=== PATIENT | male | born 1955 ===

== ENCOUNTER 2017-04-01 20:46 | Observation (INO) | payer OTHER ==
[2017-04-01 21:16] VITALS: BMI 29.2
--- NOTE | 2017-04-01 21:42 | ED PDOC ---
Arrival/HPI - General Chief Complaint: Chest Pain Time Seen by Provider: 04/01/17 20:48 Historian: Patient - History of Present Illness Narrative History of Present Illness (Text): 04/01/17 21:35 Yovani Shi is a 61 year old male, whose past medical history includes hypertension, who presents to the Emergency department complaining of chest pain. Patient states he began experiencing intermittent chest tightness after eating dinner tonight. Patient states he is able to tolerate fluids without difficulty. Patient states chest tightness has improved, but is still present. Patient reports a family history of cardiac disease. Patient denies any fever, chills, shortness of breath, nausea, vomiting, diarrhea, urinary symptoms, back pain, neck pain, headache, dizziness, or any other complaints. Symptom Onset: Gradual Symptom Course: Unchanged Quality: Tightness Activities at Onset: Light, Eating Context: Home Past Medical History - Provider Review Nursing Documentation Reviewed: Yes - Infectious Disease Hx of Infectious Diseases: None - Cardiac Hx Hypertension: Yes - Psychiatric Hx Substance Use: No - Surgical History Hx Cholecystectomy: Yes Family/Social History - Physician Review Nursing Documentation Reviewed: Yes Family/Social History: CAD/GA Smoking Status: Never Smoked Hx Alcohol Use: No Hx Substance Use: No Allergies/Home Meds Allergies/Adverse Reactions: Allergies anesthesia Allergy (Uncoded 04/01/17 21:17) FATIGUE tremors Review of Systems - Physician Review All systems were reviewed & negative as marked: Yes - Review of Systems Constitutional: Normal. absent: Fevers Eyes: Normal ENT: Normal Respiratory: Normal. absent: SOB, Cough Cardiovascular: Chest Pain Gastrointestinal: Normal. absent: Abdominal Pain, Diarrhea, Nausea Genitourinary Male: Normal. absent: Dysuria, Frequency, Hematuria, Urinary Output Changes Musculoskeletal: Normal. absent: Back Pain, Neck Pain Skin: Normal. absent: Rash Neurological: Normal. absent: Headache, Dizziness Endocrine: Normal Hemo/Lymphatic: Normal Psychiatric: Normal Physical Exam Vital Signs Reviewed: Yes Vital Signs Temp Pulse Resp BP Pulse Ox 04/01/17 23:27 97.6 F 60 17 157/90 H 98 Temperature: Afebrile Blood Pressure: Normal Pulse: Regular Respiratory Rate: Normal Appearance: Positive for: Well-Appearing, Non-Toxic, Comfortable Pain Distress: None Mental Status: Positive for: Alert and Oriented X 3 - Systems Exam Head: Present: Atraumatic, Normocephalic Pupils: Present: PERRL Extroacular Muscles: Present: EOMI Conjunctiva: Present: Normal Mouth: Present: Moist Mucous Membranes Neck: Present: Normal Range of Motion Respiratory/Chest: Present: Clear to Auscultation, Good Air Exchange. No: Respiratory Distress, Accessory Muscle Use Cardiovascular: Present: Regular Rate and Rhythm, Normal S1, S2. No: Murmurs Abdomen: Present: Normal Bowel Sounds. No: Tenderness, Distention, Peritoneal Signs Back: Present: Normal Inspection Upper Extremity: Present: Normal Inspection. No: Cyanosis, Edema Lower Extremity: Present: Normal Inspection. No: Edema Neurological: Present: GCS=15, CN II-XII Intact, Speech Normal Skin: Present: Warm, Dry, Normal Color. No: Rashes Psychiatric: Present: Alert, Oriented x 3, Normal Insight, Normal Concentration Medical Decision Making ED Course and Treatment: 04/01/17 21:35 Impression: 61 year old male complaining of intermittent chest tightness today. Plan: -- EKG -- Chest X-ray -- Labs, cardiac enzymes -- Reassess and disposition Progress Notes: Reviewed EKG, NSR at [address]-segment elevations or depressions, no T-wave inversions, normal intervals. 04/01/17 22:27 Chest X-ray reviewed, shows no acute processes. 04/01/17 23:[address] Robertson, who is aware and agrees with plan. Accepts pt in to hospitalist service. Pt will go to Telemetry observation for chest pain. resident programs assistant notified. - Lab Interpretations Lab Results: 04/01/17 21:57 04/01/17 21:57 Lab Results 04/01/17 21:57: WBC 5.2, RBC 5.09, Hgb 14.2, Hct 41.3 L, MCV 81.1, MCH 27.9, MCHC 34.4, RDW 13.4, Plt Count 159, MPV 10.1 04/01/17 21:57: Sodium 142, Potassium 3.6, Chloride 102, Carbon Dioxide 31, Anion Gap 13, BUN 9, Creatinine 0.7 L, Est GFR ( Amer) > 60, Est GFR (Non -Af Amer) > 60, Random Glucose 151 H, Calcium 9.6, Total Bilirubin 0.5, AST 36, ALT 42, Alkaline Phosphatase 65, Lactate Dehydrogenase 495, Total Creatine Kinase 119, Troponin I < 0.01, Total Protein 7.3, Albumin 3.9, Globulin 3.4, Albumin/Globulin Ratio 1.2 04/01/17 21:57: PT 12.2, INR 1.07, APTT 37.4 H I have reviewed the lab results: Yes - RAD Interpretation Radiology Orders: 04/01/17 21:41 CHEST PORTABLE [RAD] Stat Space Control Agent: ED Physician - EKG Interpretation Interpreted by ED Physician: Yes Type: 12 lead EKG - Medication Orders Current Medication Orders: Discontinued Medications Aspirin (Aspirin) 325 mg PO ONCE STA Stop: 04/01/17 23:05 Last Admin: 04/01/17 23:27 Dose: 325 mg - Scribe Statement The provider has reviewed the documentation as recorded by the Thomasibkathryn Gamble All medical record entries made by the Thomasibkathryn were at my direction and personally dictated by me. I have reviewed the chart and agree that the record accurately reflects my personal performance of the history, physical exam, medical decision making, and the department course for this patient. I have also personally directed, reviewed, and agree with the discharge instructions and disposition. Disposition/Present on Arrival - Present on Arrival Any Indicators Present on Arrival: No History of DVT/PE: No History of Uncontrolled Diabetes: No Urinary Catheter: No History of Decub. Ulcer: No History Surgical Site Infection Following: None - Disposition Have Diagnosis and Disposition been Completed?: Yes Diagnosis: Chest pain Disposition: HOSPITALIZED Disposition Time: 23:04 Patient Plan: Observation Patient Problems: Current Active Problems Problem Status Onset Chest pain Acute Condition: STABLE
[2017-04-01 22:14] LABS: HEMOGLOBIN 14.2 g/dL (14.0-18.0); MEAN CELL VOLUME 81.1 fl (80.0-105.0); MEAN CORPUSCULAR HEMOGLOBIN 27.9 pg (25.0-35.0); MEAN CORPUSCULAR HGB CONC 34.4 g/dl (31.0-37.0); MEAN PLATELET VOLUME 10.1 fl (7.0-11.0); RBC 5.09 10^6/uL (3.5-6.1); RED CELL DISTRIBUTION WIDTH 13.4 % (11.5-14.5); WHITE BLOOD COUNT 5.2 10^3/ul (4.5-11.0)
[2017-04-01 22:22] LABS: INR 1.07 (0.93-1.08); PROTHROMBIN TIME 12.2 SECONDS (9.4-12.5)
[2017-04-01 22:23] LABS: PARTIAL THROMBOPLASTIN TIME 37.4 Seconds (25.1-36.5)
[2017-04-01 22:47] LABS: ALB/GLOB RATIO 1.2 (1.1-1.8); ALBUMIN 3.9 g/dL (3.0-4.8); ALT/SGPT 42 U/L (7-56); AST/SGOT 36 U/L (17-59); BLOOD UREA NITROGEN 9 mg/dL (7-21); CALCIUM 9.6 mg/dL (8.4-10.5); GFR AFRICAN-AMERICAN > 60; GFR NON-AFRICAN AMERICAN > 60
[2017-04-01 22:57] LABS: TROPONIN I < 0.01 ng/mL
--- NOTE | 2017-04-02 02:30 | CP.PCM.HP ---
<Indra Malagon - Last Filed: 04/02/17 03:22> History of Present Illness - History of Present Illness History of Present Illness: Patient is a 62 year old male with a PMHx of HTN who presents complaining of non -radiating, reproducible, 7/10, squeezing chest pain that began Sunday night. Patient states the pain is worse with food. Nothing makes the pain better. He did not attempt any modalities to relieve the pain. He denies any fever, chills , SOB, palpitations, nausea, vomiting, changes in bowel habits, or urinary symptoms. He does admit to some epigastric pain. Pain had resolved in the ED. ROS: As stated above PMHx: HTN PSHx: Cholecystectomy (2015), Back surgery. Allergies: Denies SocialHx: Denies tobacco, alcohol, or illicit drug use. FamHx: Heart Disease (Mother) Meds: unspecified anti-hypertensive PMD: Dr. Cardona Present on Admission - Present on Admission Any Indicators Present on Admission: No Review of Systems - Review of Systems All systems: reviewed and no additional remarkable complaints except (As per HPI ) Past Patient History - Infectious Disease Hx of Infectious Diseases: None - Past Social History Smoking Status: Never Smoked - CARDIAC Hx Cardiac Disorders: Yes Hx Hypertension: Yes - MUSCULOSKELETAL/RHEUMATOLOGICAL Hx Falls: No - PSYCHIATRIC Hx Substance Use: No - SURGICAL HISTORY Hx Surgeries: Yes Hx Cholecystectomy: Yes Other/Comment: spinal sx Meds Allergies/Adverse Reactions: Allergies Allergy/AdvReac Type Severity Reaction Status Date / Time anesthesia Allergy FATIGUE Uncoded 04/01/17 21:17 Physical Exam - Constitutional Appears: Well, Non-toxic, No Acute Distress - Head Exam Head Exam: ATRAUMATIC, NORMAL INSPECTION, NORMOCEPHALIC - Eye Exam Eye Exam: EOMI, Normal appearance, PERRL - ENT Exam ENT Exam: Mucous Membranes Moist - Neck Exam Neck exam: Negative for: Lymphadenopathy, Thyromegaly - Respiratory Exam Respiratory Exam: Chest Wall Tenderness, Clear to Auscultation Bilateral. absent: Accessory Muscle Use, Rales, Rhonchi, Wheezes, Stridor - Cardiovascular Exam Cardiovascular Exam: Bradycardia, REGULAR RHYTHM, +S1, +S2. absent: Diastolic murmur, JVD, Systolic Murmur - GI/Abdominal Exam GI & Abdominal Exam: Normal Bowel Sounds, Soft, Tenderness (Epigastric ). absent: Bruit, Distended, Firm, Guarding, Mass, Organomegaly, Rigid - Neurological Exam Neurological exam: Alert, Oriented x3 - Psychiatric Exam Psychiatric exam: Normal Affect, Normal Mood - Skin Skin Exam: Dry, Intact, Normal Color, Warm Results - Vital Signs Recent Vital Signs: Last Vital Signs Temp 97.9 F 04/02/17 01:28 Pulse 64 04/02/17 01:47 Resp 18 04/02/17 01:28 BP 145/87 04/02/17 01:28 Pulse Ox 98 04/01/17 23:27 - Labs Result Diagrams: 04/01/17 21:57 04/01/17 21:57 Assessment & Plan - Assessment and Plan (Free Text) Assessment: 62 year old Barb[place] Speaking male with PMHx of HTN admitted for evaluation and treatment of chest pain Plan: Chest Pain, R/O ACS DDx: GERD, Costochondritis, ACS (less likely) 1st Troponin: NEGATIVE 1st EKG: NSR, no acute ST or T wave changes ASA 325 Given in ED Serial EKG's Serial Troponins Cardiology Consult (Dr. Delaney) Hx of HTN Patient can't remember name of Anti-hypertensive. Verify with pharmacy in the AM. Hydralazine 10 IV Q6H PRN Proph Protonix SCD's Patient seen and discussed with Attending (Dr. Robertson) Indra Malagon, PGY1 <Cindy Robertson - Last Filed: 04/02/17 03:50> Results - Vital Signs Recent Vital Signs: Last Vital Signs Temp 98.2 F 04/02/17 02:41 Pulse 63 04/02/17 02:41 Resp 17 04/02/17 02:41 BP 153/93 H 04/02/17 02:41 Pulse Ox 98 04/02/17 02:41 - Labs Result Diagrams: 04/01/17 21:57 04/01/17 21:57 Attending/Attestation - Attestation I have personally seen and examined this patient.: Yes I have fully participated in the care of the patient.: Yes I have reviewed all pertinent clinical information: Yes Notes (Text): 04/02/17 03:47 Patient was seen when he was in bed # 19 in the ER . Agree with history, physical examination, assessment and plan. My impressions as follows: Epigastric pain. Chest pain. Musculo-skeletal chest pain. Overweight. Hyperglycemia. History of migraine. Hypertension. History of chest pain. History of hepatitis. History of gastritis. History of umbilical herniorrhaphy. History of back surgery. Former smoker.
[2017-04-02 04:19] LABS: BASO # 0.03 K/mm3 (0.0-2.0); BASO % 0.5 % (0.0-3.0); EOS # 0.2 (0.0-0.7); EOS % 3.7 % (1.5-5.0); GRAN # 3.28 (1.4-6.5); GRAN % 55.5 % (50.0-68.0); HEMOGLOBIN 14.1 g/dL (14.0-18.0); LYMPH # 1.9 (1.2-3.4); LYMPH % 31.8 % (22.0-35.0); MEAN CORPUSCULAR HEMOGLOBIN 27.9 pg (25.0-35.0); MEAN CORPUSCULAR HGB CONC 34.4 g/dl (31.0-37.0); MEAN PLATELET VOLUME 10.1 fl (7.0-11.0); MONO # 0.5 (0.1-0.6); MONO % 8.5 % (1.0-6.0); RBC 5.06 10^6/uL (3.5-6.1); RED CELL DISTRIBUTION WIDTH 13.6 % (11.5-14.5); WHITE BLOOD COUNT 5.9 10^3/ul (4.5-11.0)
[2017-04-02 04:30] LABS: ALB/GLOB RATIO 1.1 (1.1-1.8); ALBUMIN 3.8 g/dL (3.0-4.8); ALT/SGPT 43 U/L (7-56); AST/SGOT 30 U/L (17-59); BLOOD UREA NITROGEN 9 mg/dL (7-21); CALCIUM 8.9 mg/dL (8.4-10.5); GFR AFRICAN-AMERICAN > 60; GFR NON-AFRICAN AMERICAN > 60
[2017-04-02 04:42] LABS: TROPONIN I < 0.01 ng/mL
[2017-04-02] MEDS ORDERED: Potassium Chloride 20 mEq ER Tab PO STA (04:51)
[2017-04-02] MEDS: Pantoprazole 40 mg EC Tab PO SCH ×2 (05:07→17:25)
[2017-04-02 05:46] VITALS: O2SAT 99
--- NOTE | 2017-04-02 09:19 | RAD ---
HISTORY: chest pain COMPARISON: No prior. FINDINGS: LUNGS: No active pulmonary disease. PLEURA: No significant pleural effusion identified, no pneumothorax apparent. CARDIOVASCULAR: Normal. OSSEOUS STRUCTURES: No significant abnormalities. VISUALIZED UPPER ABDOMEN: Normal. OTHER FINDINGS: None. IMPRESSION: No active disease.
--- NOTE | 2017-04-02 10:09 | CARD ---
APPROVED REPORT EKG Measurement Heart [id number] <Conclusion> Sinus bradycardia Otherwise normal ECG
--- NOTE | 2017-04-02 10:49 | CP.PCM.DIS ---
<Collin Segal - Last Filed: 04/03/17 02:31> Provider - Provider Date of Admission: 04/01/17 23:07 Attending physician: Vivek Simental MD Primary care physician: NO PRIMARY CARE PROVIDER Consults: Cardiology: Dr. Chaudhary Time Spent in preparation of Discharge (in minutes): 45 Diagnosis - Discharge Diagnosis (1) GERD (gastroesophageal reflux disease) Status: Acute Priority: Medium (2) Chest pain Status: Chronic Priority: Medium Hospital Course - Lab Results Lab Results: Most Recent Lab Values WBC 5.9 10^3/ul (4.5-11.0) 04/02/17 04:08 RBC 5.06 10^6/uL (3.5-6.1) 04/02/17 04:08 Hgb 14.1 g/dL (14.0-18.0) 04/02/17 04:08 Hct 41.0 % (42.0-52.0) L 04/02/17 04:08 MCV 81.0 fl (80.0-105.0) 04/02/17 04:08 MCH 27.9 pg (25.0-35.0) 04/02/17 04:08 MCHC 34.4 g/dl (31.0-37.0) 04/02/17 04:08 RDW 13.6 % (11.5-14.5) 04/02/17 04:08 Plt Count 152 10^3/uL (120.0-450.0) 04/02/17 04:08 MPV 10.1 fl (7.0-11.0) 04/02/17 04:08 Gran % 55.5 % (50.0-68.0) 04/02/17 04:08 Lymph % (Auto) 31.8 % (22.0-35.0) 04/02/17 04:08 [place] % (Auto) 8.5 % (1.0-6.0) H 04/02/17 04:08 Eos % (Auto) 3.7 % (1.5-5.0) 04/02/17 04:08 Baso % (Auto) 0.5 % (0.0-3.0) 04/02/17 04:08 Gran # 3.28 (1.4-6.5) 04/02/17 04:08 Lymph # (Auto) 1.9 (1.2-3.4) 04/02/17 04:08 [place] # (Auto) 0.5 (0.1-0.6) 04/02/17 04:08 Eos # (Auto) 0.2 (0.0-0.7) 04/02/17 04:08 Baso # (Auto) 0.03 K/mm3 (0.0-2.0) 04/02/17 04:08 PT 12.2 SECONDS (9.4-12.5) 04/01/17 21:57 INR 1.07 (0.93-1.08) 04/01/17 21:57 APTT 37.4 Seconds (25.1-36.5) H 04/01/17 21:57 Sodium 143 mmol/L (132-148) 04/02/17 04:08 Potassium 3.5 mmol/L (3.6-5.0) L 04/02/17 04:08 Chloride 105 mmol/L (98-107) 04/02/17 04:08 Carbon Dioxide 27 mmol/L (21-33) 04/02/17 04:08 Anion Gap 14 (10-20) 04/02/17 04:08 BUN 9 mg/dL (7-21) 04/02/17 04:08 Creatinine 0.7 mg/dl (0.8-1.5) L 04/02/17 04:08 Est GFR ( Amer) > 60 04/02/17 04:08 Est GFR (Non-Af Amer) > 60 04/02/17 04:08 Random Glucose 142 mg/dL (70-110) H 04/02/17 04:08 Calcium 8.9 mg/dL (8.4-10.5) 04/02/17 04:08 Total Bilirubin 0.4 mg/dL (0.2-1.3) 04/02/17 04:08 AST 30 U/L (17-59) 04/02/17 04:08 ALT 43 U/L (7-56) 04/02/17 04:08 Alkaline Phosphatase 63 U/L (38-126) 04/02/17 04:08 Lactate Dehydrogenase 495 U/L (333-699) 04/01/17 21:57 Total Creatine Kinase 119 U/L (35-230) 04/01/17 21:57 Troponin I < 0.01 ng/mL 04/02/17 09:42 Total Protein 7.1 g/dL (5.8-8.3) 04/02/17 04:08 Albumin 3.8 g/dL (3.0-4.8) 04/02/17 04:08 Globulin 3.3 gm/dL 04/02/17 04:08 Albumin/Globulin Ratio 1.1 (1.1-1.8) 04/02/17 04:08 - Hospital Course Hospital Course: Patient is a 62 year old male with a past medical history of hypertension who presented complaining of non-radiating, reproducible, 7/10, squeezing chest pain that began Sunday night. Patient stated the pain is worse with food. Nothing makes the pain better. He did not attempt any modalities to relieve the pain. He denied any fever, chills, shortness of breath, palpitations, nausea, vomiting, changes in bowel habits, or urinary symptoms. He did also admit to some epigastric pain. Pain had resolved in the ED. Patient was seen the following morning. Cardiac enzymes were trended and negative, EKG revealed normal sinus rhythm. Pain patient chronically experiences is usually associated with food consumption and most likely non cardiac in origin. Patient was instructed to take protonix for four weeks and follow up with [facility] for further evaluation and possible referral to the GI clinic at [facility]. Patient was in agreement with plan and discharged. Case reviewed and discussed with Dr. Kamille Segal PGY1 Discharge Exam - Head Exam Head Exam: ATRAUMATIC, NORMAL INSPECTION, NORMOCEPHALIC - Eye Exam Eye Exam: EOMI, Normal appearance - ENT Exam ENT Exam: Mucous Membranes Moist - Neck Exam Neck exam: Normal Inspection - Respiratory Exam Respiratory Exam: Clear to PA & Lateral, NORMAL BREATHING PATTERN, UNREMARKABLE - Cardiovascular Exam Cardiovascular Exam: REGULAR RHYTHM, +S1, +S2 - GI/Abdominal Exam GI & Abdominal Exam: Normal Bowel Sounds, Unremarkable - Extremities Exam Extremities exam: normal inspection - Back Exam Back exam: NORMAL INSPECTION - Neurological Exam Neurological exam: Alert, CN II-XII Intact, Oriented x3 - Psychiatric Exam Psychiatric exam: Normal Affect, Normal Mood - Skin Skin Exam: Intact, Normal Color, Warm Discharge Plan - Discharge Medications Prescriptions: Pantoprazole Sodium [Protonix] 40 mg PO DAILY #30 ect - Follow Up Plan Condition: STABLE Disposition: HOME/ ROUTINE Instructions: Heart Healthy Diet, High Blood Pressure (DC), Chest Pain (DC) Additional Instructions: Discharge Instructions 1. Protonix trial for 4 weeks 2. follow up with [facility] [place] or [facility], then get referral to follow up with [facility] Department Chair at [facility]. Referrals: [facility] at [facility] [Outside] [facility] at [facility] [Outside] PCP,NO [Primary Care Provider] - Follow up with primary <Vivek Simental - Last Filed: 04/03/17 15:20> Provider - Provider Date of Admission: 04/01/17 23:07 Attending physician: Vivek Simental MD Primary care physician: NO PRIMARY CARE PROVIDER [place] [facility] Course - Lab Results Lab Results: Most Recent Lab Values WBC 5.9 10^3/ul (4.5-11.0) 04/02/17 04:08 RBC 5.06 10^6/uL (3.5-6.1) 04/02/17 04:08 Hgb 14.1 g/dL (14.0-18.0) 04/02/17 04:08 Hct 41.0 % (42.0-52.0) L 04/02/17 04:08 MCV 81.0 fl (80.0-105.0) 04/02/17 04:08 MCH 27.9 pg (25.0-35.0) 04/02/17 04:08 MCHC 34.4 g/dl (31.0-37.0) 04/02/17 04:08 RDW 13.6 % (11.5-14.5) 04/02/17 04:08 Plt Count 152 10^3/uL (120.0-450.0) 04/02/17 04:08 MPV 10.1 fl (7.0-11.0) 04/02/17 04:08 Gran % 55.5 % (50.0-68.0) 04/02/17 04:08 Lymph % (Auto) 31.8 % (22.0-35.0) 04/02/17 04:08 [place] % (Auto) 8.5 % (1.0-6.0) H 04/02/17 04:08 Eos % (Auto) 3.7 % (1.5-5.0) 04/02/17 04:08 Baso % (Auto) 0.5 % (0.0-3.0) 04/02/17 04:08 Gran # 3.28 (1.4-6.5) 04/02/17 04:08 Lymph # (Auto) 1.9 (1.2-3.4) 04/02/17 04:08 [place] # (Auto) 0.5 (0.1-0.6) 04/02/17 04:08 Eos # (Auto) 0.2 (0.0-0.7) 04/02/17 04:08 Baso # (Auto) 0.03 K/mm3 (0.0-2.0) 04/02/17 04:08 PT 12.2 SECONDS (9.4-12.5) 04/01/17 21:57 INR 1.07 (0.93-1.08) 04/01/17 21:57 APTT 37.4 Seconds (25.1-36.5) H 04/01/17 21:57 Sodium 143 mmol/L (132-148) 04/02/17 04:08 Potassium 3.5 mmol/L (3.6-5.0) L 04/02/17 04:08 Chloride 105 mmol/L (98-107) 04/02/17 04:08 Carbon Dioxide 27 mmol/L (21-33) 04/02/17 04:08 Anion Gap 14 (10-20) 04/02/17 04:08 BUN 9 mg/dL (7-21) 04/02/17 04:08 Creatinine 0.7 mg/dl (0.8-1.5) L 04/02/17 04:08 Est GFR ( Amer) > 60 04/02/17 04:08 Est GFR (Non-Af Amer) > 60 04/02/17 04:08 Random Glucose 142 mg/dL (70-110) H 04/02/17 04:08 Calcium 8.9 mg/dL (8.4-10.5) 04/02/17 04:08 Total Bilirubin 0.4 mg/dL (0.2-1.3) 04/02/17 04:08 AST 30 U/L (17-59) 04/02/17 04:08 ALT 43 U/L (7-56) 04/02/17 04:08 Alkaline Phosphatase 63 U/L (38-126) 04/02/17 04:08 Lactate Dehydrogenase 495 U/L (333-699) 04/01/17 21:57 Total Creatine Kinase 119 U/L (35-230) 04/01/17 21:57 Troponin I < 0.01 ng/mL 04/02/17 09:42 Total Protein 7.1 g/dL (5.8-8.3) 04/02/17 04:08 Albumin 3.8 g/dL (3.0-4.8) 04/02/17 04:08 Globulin 3.3 gm/dL 04/02/17 04:08 Albumin/Globulin Ratio 1.1 (1.1-1.8) 04/02/17 04:08 Attending/Attestation - Attestation I have personally seen and examined this patient.: Yes I have fully participated in the care of the patient.: Yes I have reviewed all pertinent clinical information, including history, physical exam and plan: Yes Notes (Text): 04/03/17 15:17 attending note; Patient seen and examined with resident. Patient is a 62-year-old male admitted with epigastric/chest pain. Patient was admitted to Telemetry and monitored closely. cardiac enzymes negative. cardiology evaluation appreciated. Patient will get outpatient stress test. Possible gastritis; started on Protonix. Follow up with GI as outpatient. Follow-up with PMD Dr. Cardona. Advised to complete [facility] Paperwork. [facility] information given.
[2017-04-02 13:55] VITALS: BP 141/90; PULSE 56; RESP 19; TEMP 98.3
--- NOTE | 2017-04-02 15:44 | CARD ---
APPROVED REPORT EKG Measurement Heart [id number] <Conclusion> Normal sinus rhythm NSSTW changes
--- NOTE | 2017-04-02 21:12 | CARD ---
APPROVED REPORT EKG Measurement Heart [id number] <Conclusion> Sinus bradycardia Otherwise normal ECG
--- NOTE | 2017-04-02 21:53 | CON ---
DATE: REASON FOR CONSULTATION: Chest pain, cardiac evaluation. BRIEF CLINICAL HISTORY: This is a 62-year-old male with past medical history of hypertension admitted because of complaint of chest pain. Initially it started on left side, then went to his right side and may get worse on taking a deep breath. Denies any chest pain, dyspnea on exertion or chest pain on walking. Sometimes the pain gets worse when the patient takes the food. Denies any chest pain on exertion or on walking. PAST MEDICAL HISTORY: Significant for hypertension. SOCIAL HISTORY: Denies smoking. Denies any history of alcohol abuse. Denies any history of substance abuse. PAST SURGICAL HISTORY: Significant for cholecystectomy in 2004. CURRENT MEDICATIONS: Does not take any medication. REVIEW OF SYSTEMS: As per HPI. PHYSICAL EXAMINATION: As follows; VITAL SIGNS: Temperature afebrile, heart rate 54, blood pressure 139/85. HEENT: PERRLA. Extraocular muscles intact. NECK: Supple. No carotid bruits or thyromegaly. CHEST: Clear to auscultation. HEART: S1 and S2, regular. ABDOMEN: Soft. EXTREMITIES: Clubbing and cyanosis negative. LABORATORY DATA: Blood workup as follows: WBC 5.9, hemoglobin 14.2, hematocrit 41.0, platelets count 152. Chemistries show sodium 142, potassium 3.5, chloride 105, carbon dioxide 27, anion gap of 14.9, creatinine 0.7. Troponin is 0.01. EKG shows normal sinus. No acute ST-T changes noted, within normal limits. IMPRESSION AND PLAN: Atypical chest pain. Two sets of troponins are negative. But because of risk factor, we will do a stress test as outpatient. We will do third sets of enzymes and if the third sets are negative, we will discontinue telemetry. We will also supplement potassium. We will follow with you. Thank you Dr. Cardona/Dr. Chance for providing us the opportunity in taking care of your patient, Yovani Shi. Mariza Pepe MD
== END 2017-04-02 18:35 | disposition home or self-care (01) ==
LOC: ED 20:46 → ERH 23:07 → EDBD 23:07 → ERH 04-02 00:42 → 2RSO 04-02 01:14 → 2RNO 04-02 01:16
PROVIDERS: ADMIT Hospitalist; ATTEND Internal Medicine
DX: K21.9 Gastro-esophageal reflux disease without esophagitis (principal); R07.89 Other chest pain; I10 Essential (primary) hypertension; Z90.49 Acquired absence of other specified parts of digestive tract; Z82.49 Family history of ischemic heart disease and other diseases of the circulatory system
CPT/HCPCS: 36415; 71045; 80053; 82550; 83615; 84484; 85025; 85027; 85610; 85730; 93005; 99282; G0378